=== PATIENT | male | born 1950 | race Two or more races ===

== ENCOUNTER 2024-09-11 11:58 | Emergency (ER) | payer OTHER ==
[~2024-09-11] VITALS: Ht 162.6 cm; Wt 68.0 kg
[2024-09-11] MEDS: IOHEXOL 350 MG/ML 100ML IJ ONE (13:34)
[2024-09-11] MEDS: EPINEPHrine HCL 0.5 ML NEB NEB ONE (13:40)
[2024-09-11] MEDS: IPRATROPIUM BROM 0.5 MG/2.5ML INH SOL NEB ONE (13:40)
[2024-09-11] MEDS: ALBUTEROL SULF 2.5 MG/0.5ML(0.5%) NEB SOLN NEB ONE (13:40)
[2024-09-11 13:54] LABS: Basophils # (auto) 0 10 ^3/uL (0-0.2); Basophils % (auto) 0.1 % (0.0-2.0); Eosinophils # (auto) 0 10 ^3/uL (0-0.8); Hematocrit 38.6 % (41.0-53.0); Lymphocytes # (auto) 0.2 10 ^3/uL (0.4-5.4); Lymphocytes % (auto) 2.9 % (10.0-50.0); Mean Corpuscular Hemoglobin 29.4 pg (28.0-32.0); Mean Corpuscular Hgb Conc. 33.8 g/dL (32.0-36.0); Mean Corpuscular Volume 87.1 fL (80.0-100.0); Monocytes # (auto) 0.2 10 ^3/uL (0-1.3); Monocytes % (auto) 4.6 % (0.0-12.0); Neutrophils # (auto) 4.9 10 ^3/uL (1.6-8.6); Neutrophils % (auto) 92.4 % (37.0-80.0); Nucleated Red Blood Cells % 0.1 %; Platelet Count (auto) 214 10^3/uL (140-450); Red Blood Cells 4.43 10^6/uL (4.5-5.90); Red Cell Distribution Width 14.4 % (11.8-14.3); White Blood Cell 5.3 10^3/uL (4.4-10.8)
[2024-09-11] MEDS: methylPREDNISolone SOD SUCC 125 MG/2 ML VL IV ONE (13:56)
--- NOTE | 2024-09-11 13:56 | ED.PDOC ---
SOB-HPI HPI Comments 73y M who presents to the ED via EMS for chief complaint of shortness of breath. Per spouse, pt has been increasingly weak for the past few days and states this AM, pt 02 sat and vitals were checked. notes pt had 02 sat of 63% on room air and called EMS. 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 Pt notes over the past 4-5 days, she has noticed increased shortness of breath with increased cough and phlegm. Pt arrived to the ED with 02 sat of 88% on room air and pt was placed on 3 L via nc and 02 sat is now 97%. Pt otherwise has temp of 98.9F, BP of 117/7 3, and rr of 20. Pt in no noted current respiratory distress. Pt also states pt recently underwent pulmonary function testing which was abnormal, and was placed on several respiratory medications including albuterol. Pt states he is active tobacco smoker and states he smokes cigarettes whenever he feels stressed. Pt otherwise denies any other symptoms at this time. Chief Complaint: Shortness of Breath Time Seen by MD: 13:51 Reviewed notes: [employer] Notes Information Source: Patient, Spouse Mode of Arrival: EMS Brought in by: EMS Past Medical History PAST MEDICAL HISTORY: Cancer (glottic cancer status post XRT), High Lipids Surgical History: Denies all surgeries Family History Family History: Reviewed,noncontributory to illness Social History Smoker: Cigarettes Alcohol: Denies ETOH Use Drugs: Denies Drug Use Lives In: Home Constitutional: reports: fatigue, malaise; denies: chills, diaphoresis, fever, sweats, weakness, others EENTM: reports: nose congestion; denies: blurred vision, double vision, ear bleeding, ear discharge, ear drainage, ear pain, ear ringing, eye pain, eye redness, hearing loss, mouth pain, mouth swelling, nasal discharge, nose bleeding, nose pain, photophobia, tearing, throat pain, throat swelling, voice changes, others Respiratory: reports: cough, shortness of breath, others (phlegm); denies: hemoptysis, orthopnea, SOB at rest, SOB with excertion, stridor, wheezing Cardiovascular: denies: chest pain, dizzy spells, diaphoresis, Dyspnea on exertion, edema, irregular heart beat, left arm pain, lightheadedness, palpitations, PND, syncope, others Gastrointestinal: denies: abdomen distended, abdominal pain, blood streaked bowels, constipated, diarrhea, dysphagia, difficulty swallowing, hematemesis, melena, nausea, poor appetite, poor fluid intake, rectal bleeding, rectal pain, vomiting, others Genitourinary: denies: burning, dysuria, flank pain, frequency, hematuria, incontinence, penile discharge, penile sore, pain, testicle pain, testicle swelling, urgency, others Neurological: denies: dizziness, fainting, headache, left sided numbness, left sided weakness, numbness, paresthesia, pre-existing deficit, right sided numbness, right sided weakness, seizure, speech problems, tingling, tremors, weakness, others Musculoskeletal: denies: back pain, gout, joint pain, joint swelling, muscle pain, muscle stiffness, neck pain, others Integumetry: denies: bruises, change in color, change in hair/nails, dryness, laceration, lesions, lumps, rash, wounds, others Allergic/Immunocompromised: denies: Difficulty Healing, Frequent Infections, Hives, Itching, others Hematologic/Lymphatic: denies: anemia, blood clots, easy bleeding, easy bruising, swollen glands, others Endocrine: denies: excessive hunger, excessive sweating, excessive thirst, excessive urination, flushing, intolerance to cold, intolerance to heat, unexp lained weight gain, unexplained weight loss, others Psychiatric: denies: anxiety, bipolar disorder, depression, hopeless, panic disorder, schizophrenia, sleepless, suicidal, others All Other Systems: Reviewed and Negative Physical Exam General Appearance: Mild Distress, Other (Chronically ill-appearing) HEENT: PERRL/EOMI, Other (Dry mucous membranes) Neck: Full Range of Motion, Normal Inspection Respiratory: No Accessory Muscle Use, Respiratory Distress (Mild), Wheezing, Other (Audible wheezing and coarse upper airway sounds) Cardiovascular: No Edema, No JVD, Regular Rate/Rhythm Breast Exam: Deferred Gastrointestinal: Non Tender, Soft Genitalia: Deferred Pelvic: Deferred Rectal: Deferred Extremities: Normal inspection, Normal range of motion, Non-tender, No pedal edema Neurologic: Alert (Oriented x4), Normal Affect, Normal Mood, Other (Moves all extremities. No gross focal deficit.) Cerebellar Function: NOT DONE Reflexes: NOT DONE Skin: Dry, Pallor, Warm Lymphatic: NOT DONE Was a procedure done? Was a procedure done?: No Differential Dx Differential Diagnosis: Bronchitis, CHF, COPD, Hyponatremia, Myocardial infarction, Pneumonia, Pulmonary Embolism, Respiratory Distress, Pharyngitis, URI, Other (Upper airway obstruction, among others) Comments acute resp failure, Influenza A and B, COVID, sepsis X-Ray, Labs, Meds, VS Vital Signs Date Time Temp Pulse Resp B/P (MAP) Pulse Ox O2 Delivery O2 Flow Rate FiO2 09/11/24 18:00 89 17 128/63 (84) 97 09/11/24 16:00 74 16 118/62 (80) 95 09/11/24 14:00 93 12 99 Nasal Cannula* 3 32 09/11/24 14:00 93 12 115/67 (83) 99 09/11/24 13:40 22 96 Nasal Cannula* 2 28 09/11/24 12:06 98.9 87 20 117/73 (88) 96 98.9 09/11/24 12:00 98.9 90 14 117/71 (86) 96 Lab Test 09/11/24 17:00 09/11/24 15:04 09/11/24 13:30 Range/Units Influenza Type A Antigen Negative Negative Influenza Type B Antigen Negative Negative SARS-CoV-2 Antigen (Rapid) Negative NEGATIVE Troponin I High Sensitivity 30 28 </=54 ng/L White Blood Count 5.3 4.4-10.8 10^3/uL Red Blood Count 4.43 L 4.5-5.90 10^6/uL Hemoglobin 13.0 L 13.5-17.5 g/dL Hematocrit 38.6 L 41.0-53.0 % Mean Corpuscular Volume 87.1 80.0-100.0 fL Mean Corpuscular Hemoglobin 29.4 28.0-32.0 pg Mean Corpuscular Hemoglobin Concent 33.8 32.0-36.0 g/dL Red Cell Distribution Width 14.4 H 11.8-14.3 % Platelet Count 214 140-450 10^3/uL Mean Platelet Volume 8.5 6.9-10.8 fL Neutrophils (%) (Auto) 92.4 H 37.0-80.0 % Lymphocytes (%) (Auto) 2.9 L 10.0-50.0 % Monocytes (%) (Auto) 4.6 0.0-12.0 % Eosinophils (%) (Auto) 0.0 0.0-7.0 % Basophils (%) (Auto) 0.1 0.0-2.0 % Neutrophils # (Auto) 4.9 1.6-8.6 10 ^3/uL Lymphocytes # (Auto) 0.2 L 0.4-5.4 10 ^3/uL Monocytes # (Auto) 0.2 0-1.3 10 ^3/uL Eosinophils # (Auto) 0 0-0.8 10 ^3/uL Basophils # (Auto) 0 0-0.2 10 ^3/uL Nucleated Red Blood Cells 0.1 % Sodium Level 145 136-145 mmol/L Potassium Level 3.2 L 3.5-5.1 mmol/L Chloride Level 105 98-107 mmol/L Carbon Dioxide Level 32 H 20-31 mmol/L Anion Gap 8 5-15 Blood Urea Nitrogen 39 H 9-23 mg/dL Creatinine 1.40 H 0.700-1.30 mg/dL Glomerular Filtration Rate Calc 53 >90 mL/min BUN/Creatinine Ratio 27.9 H 10.0-20.0 Serum Glucose 90 74-106 mg/dL Lactic Acid Level 1.7 0.4-2.0 mmol/L Calcium Level 9.5 8.7-10.4 mg/dL Total Bilirubin 0.8 0.2-1.0 mg/dL Aspartate Amino Transferase (AST) 20 13-40 U/L Alanine Aminotransferase (ALT) 20 7-40 U/L Alkaline Phosphatase 67 46-116 U/L B-Type Natriuretic Peptide 75.66 0-100 pg/mL Total Protein 5.9 5.7-8.2 g/dL Albumin 3.4 3.2-4.8 g/dL Current Medications Medications (Trade) Dose Ordered Sig/Wanda Route Start Time Stop Time Status Last Admin Albuterol (Ventolin Medneb) 5 mg ONCE ONCE NEB 09/11/24 13:30 09/11/24 13:31 DC 09/11/24 13:40 Ipratropium Thornton (Atrovent Medneb) 0.5 mg ONCE ONCE NEB 09/11/24 13:30 09/11/24 13:31 DC 09/11/24 13:40 Methylprednisolone Sodium Succinate (Solu Medrol) 125 mg ONCE ONCE IV 09/11/24 13:30 09/11/24 13:31 DC 09/11/24 13:56 Epinephrine HCl (Racenephrine) 0.5 ml ONCE ONCE NEB 09/11/24 13:30 09/11/24 13:31 DC 09/11/24 13:40 [place] [address] Ph: [phone] DIAGNOSTIC IMAGING Diagnostic Imaging Report : [id number] Signed PATIENT: BAR ARIZMENDI ACCT: [id number] UNIT: [id number] : 1950 LOC: ER ROOM / BED: / AGE / SEX: 73 / M ADM STATUS: REG ER SERVICE 1304 ORDERING PHYSICIAN: BIJAL VALLE MD PROCEDURE(s): CTACH - CT ANGIO CHEST CONTRAST REASON: sob throat ca r/o pe ORDER NUMBER(s): [id number], ACCESSION NUMBER(s): [id number] CT CT ANGIO CHEST CONTRAST INDICATION: sob throat ca r/o pe EXAM DATE: 09/11/2024 02:32 PM COMPARISON: None RADIATION DOSE: CTDIvol: 10 mGy, DLP: 396 mGy*cm PROCEDURE: Helical CT angiographic images were obtained of the chest with intravenous contrast. Sagittal and coronal reconstructions as well as MIPS are provided. Maximum intensity projections performed (MIPs) were performed for CTA. ADDITIONAL IMAGES / REFORMATS: None All CT scans at this medical facility are performed using dose modulation techniques as appropriate to a performed exam including the following: Automated exposure control was utilized; adjustment of the MA and/or KV according to patient size; and use of iterative reconstruction technique. FINDINGS: Bones: Scattered degenerative changes are noted in the visualized osseous structures. Old right sided rib fracture. Visualized Abdomen: Normal. Chest Wall: Normal. Soft tissues: Foci of gas in the anterior trachea appears to be outside of the trachea, could be from prior instrumentation vs trachea defect. Clinical correlation recommended. Mediastinum: Normal. Heart: Normal. Vessels: No filling defects in the visualized pulmonary arteries including the segmental and subsegmental pulmonary arteries. Lymph Nodes: Normal. Pleura: Normal. Airways: Normal. Lung: Bilateral ground glass opacities with left basilar consolidation consistent with pneumonia. Mild emphysema. Other: None IMPRESSION: No pulmonary embolism in the visualized pulmonary arteries including the segmental and subsegmental pulmonary arteries. Bilateral ground glass opacities with left basilar consolidation consistent with pneumonia. Foci of gas in the anterior trachea appears to be outside of the trachea, could be from prior instrumentation vs trachea defect. Clinical correlation recommended. ATED BY: JOSE L ARTEAGA MD DICTATED DATE/TIME: 09/11/241456 SIGNED BY: JOSE L ARTEAGA MD SIGNED DATE/TIME: 09/11/241456 CC: X-Ray, Labs, Meds, VS Comment 73-year-old male with a history of glottic cancer status post XRT brought in by EMS for shortness of breath, productive cough, and low oxygen saturation of 63% on room air at home, patient found to be 88% on room air on arrival to the ED Initial vitals unremarkable on 3 L nasal cannula Rhythm strip independently interpreted by me: Sinus rhythm, rate 90, no ectopy. CT angio chest: IMPRESSION: No pulmonary embolism in the visualized pulmonary arteries including the segmental and subsegmental pulmonary arteries. Bilateral ground glass opacities with left basilar consolidation consistent with pneumonia. Foci of gas in the anterior trachea appears to be outside of the trachea, could be from prior instrumentation vs trachea defect. Clinical correlation recommended. CBC unremarkable, metabolic panel remarkable for potassium 3.2, CO2 32, BUN 39, creatinine 1.4, BNP and 2 serial troponins unremarkable, influenza and COVID tests negative Patient treated with the following in the ED: Albuterol 5 mg/Atrovent 0.5 mg nebulized, racemic epi 0.5 mL nebulized, Solu- Medrol 125 mg IV, 1 L 0.9 normal saline IV bolus, Rocephin 1 g IV, Zithromax 500 mg IV, potassium effervescent tablet 50 mEq p.o. On re-evaluation, patient states he feels it is easier to breathe. He is not in respiratory distress, and there are no audible wheezes. Oxygen saturation is 95-100% on 3 L nasal cannula. Plan is to admit or transfer the patient to [facility] for IV antibiotics and respiratory support as needed. Case discussed with Dr. Elise at [facility] who will arrange for the patient to be transferred to [facility]. Authorization [id number] Time of 1ST Reevaluation: 14:20 Reevaluation 1ST: Unchanged Patient Education/Counseling: Diagnosis, Treatment Family Education/Counseling: Diagnosis, Treatment Additional Information -Reviewed patient's previous visit(s): - The following tests were ordered, and results were reviewed by me: tropx2, cbc, cmp, bnp, chest x-ray, ua, lactic acid, blood cultures, flu A and B, COVID, - I reviewed and agreed with the following test results read by other provider: radiologist - I discussed treatments and results with medical personnel and: patient and spoue Comprehensive systems review obtained and negative except for what is stated in the HPI. Departure 1 Departure Time of Disposition: 20:08 Impression: Primary Impression: Acute respiratory failure Qualified Codes: J96.00 - Acute respiratory failure, unspecified whether with hypoxia or hypercapnia Additional Impression: Pneumonia Qualified Codes: J18.9 - Pneumonia, unspecified organism Disposition: 02 SHORT TERM HOSPITAL Admit to: Tele Condition: Guarded Critical Care Note Critical Care Time?: Yes (45 min-critical care time only) Critical care comment: Critical care time including multiple bedside re-evaluations, review of lab and imaging studies, and discussion of the case with [facility]. Patient is high risk for respiratory decompensation. Stability Stability form required: No Heart Score Heart Score: Heart Score Response (Comments) Value History N/A 0 EKG N/A 0 Age N/A 0 Risk Factors N/A 0 Troponin N/A 0 Total 0 I personally scribed for BIJAL VALLE MD ([email or web address]) on 09/11/24 at 13:56. Electronically submitted by Pranav Varghese ([employer]). I personally scribed for BIJAL VALLE MD (ARABELLA) on 09/11/24 at 15:16. Electronically submitted by Pranav Varghese ([email or web address]). BIJAL VALLE MD Sep 11, 2024 13:56
[2024-09-11 14:00] VITALS: PULSE 93; RESP 12; O2SAT 99
[2024-09-11 14:06] LABS: Alanine Aminotransferase 20 U/L (7-40); Albumin 3.4 g/dL (3.2-4.8); Alkaline Phosphatase 67 U/L (46-116); Anion Gap 8 (5-15); Aspartate Aminotransferase 20 U/L (13-40); BUN/Creatinine Ratio 27.9 (10.0-20.0); Bilirubin, Total 0.8 mg/dL (0.2-1.0); Calcium 9.5 mg/dL (8.7-10.4); Chloride 105 mmol/L (98-107); Glucose 90 mg/dL (74-106); Sodium 145 mmol/L (136-145); Total Protein 5.9 g/dL (5.7-8.2)
[2024-09-11 14:14] LABS: Blood Urea Nitrogen 39 mg/dL (9-23); Carbon Dioxide 32 mmol/L (20-31); Potassium 3.2 mmol/L (3.5-5.1)
--- NOTE | 2024-09-11 14:59 | DVH ---
CT CT ANGIO CHEST CONTRAST INDICATION: sob throat ca r/o pe EXAM DATE: 09/11/2024 02:32 PM COMPARISON: None RADIATION DOSE: CTDIvol: 10 mGy, DLP: 396 mGy*cm PROCEDURE: Helical CT angiographic images were obtained of the chest with intravenous contrast. Sagi ttal and coronal reconstructions as well as MIPS are provided. Maximum intensity projections performe d (MIPs) were performed for CTA. ADDITIONAL IMAGES / REFORMATS: None All CT scans at this medical facility are performed using dose modulation techniques as appropriate t o a performed exam including the following: Automated exposure control was utilized; adjustment of th e MA and/or KV according to patient size; and use of iterative reconstruction technique. FINDINGS: Bones: Scattered degenerative changes are noted in the visualized osseous structures. Old right side d rib fracture. Visualized Abdomen: Normal. Chest Wall: Normal. Soft tissues: Foci of gas in the anterior trachea appears to be outside of the trachea, could be from prior instrumentation vs trachea defect. Clinical correlation recommended. Mediastinum: Normal. Heart: Normal. Vessels: No filling defects in the visualized pulmonary arteries including the segmental and subsegme ntal pulmonary arteries. Lymph Nodes: Normal. Pleura: Normal. Airways: Normal. Lung: Bilateral ground glass opacities with left basilar consolidation consistent with pneumonia. Mil d emphysema. Other: None IMPRESSION: No pulmonary embolism in the visualized pulmonary arteries including the segmental and subsegmental p ulmonary arteries. Bilateral ground glass opacities with left basilar consolidation consistent with pneumonia. Foci of gas in the anterior trachea appears to be outside of the trachea, could be from prior instrum entation vs trachea defect. Clinical correlation recommended.
[2024-09-11 17:24] LABS: Rapid Influenza A Negative (Negative); Rapid Influenza B Negative (Negative)
[2024-09-11 17:25] LABS: COVID19 ANTIGEN SOFIA FIA NEGATIVE (NEGATIVE)
[2024-09-11 20:00] VITALS: PULSE 76; RESP 13; TEMP 97.6; O2SAT 99
[2024-09-11] MEDS: POTASSIUM EFFERVESENT TAB 25 MEQ PO ONE (21:45)
[2024-09-11] MEDS: SODIUM CHLORIDE 0.9% 1,000 ML IV ONE (21:46)
[2024-09-11] MEDS: cefTRIAXone 1GM/50ML D5W 50 ML IV ONE (22:24)
[2024-09-11] MEDS: AZITHROMYCIN 500MG/ 250ML 250 ML IV ONE (23:24)
[2024-09-12 01:33] LABS: Urine Bacteria None Seen /hpf (None Seen)
[2024-09-12 01:46] LABS: Urine Blood Negative /uL (Negative); Urine Clarity Clear (Clear); Urine Color Yellow (Yellow); Urine Mucus FEW (None Seen); Urine Protein, UAD 1+ (Negative); Urine Specific Gravity > 1.050 (1.001-1.035); Urine Squamous Epithelial Cell None Seen /hpf (<5); Urine Urobilinogen Normal (Negative); Urine WBC 3 /HPF (0-3)
[2024-09-12 02:05] VITALS: BP 115/68; PULSE 81; RESP 22; O2SAT 98
== END 2024-09-12 02:15 | disposition short-term general hospital (02) ==
LOC: ER 11:58 → EDBD 11:58 → ER 09-12 02:15
DX: J96.00 Acute respiratory failure, unspecified whether with hypoxia or hypercapnia (principal); J18.9 Pneumonia, unspecified organism; C14.0 Malignant neoplasm of pharynx, unspecified; E78.5 Hyperlipidemia, unspecified; F17.210 Nicotine dependence, cigarettes, uncomplicated; Z20.822 Contact with and (suspected) exposure to COVID-19
CPT/HCPCS: 36415; 71275; 80053; 81001; 82947; 83605; 83880; 84484; 85025; 87040; 87426; 87804; 94640; 96361; 96365; 96366; 96367; 96375; 99291; J0456; J0696; J2919; J7030; Q9967; 82962